=== PATIENT | male | born 1960 | race Caucasian/White ===

== ENCOUNTER 2020-07-08 10:21 | Emergency (ER) | payer MEDICAID, SELFPAY ==
[~2020-07-08] VITALS: Ht 165.1 cm; Wt 74.4 kg
[2020-07-08 10:23] VITALS: Ht 165.1 cm; Wt 74.4 kg
[2020-07-08 12:11] VITALS: BP 165/98
== END 2020-07-08 12:11 | disposition home or self-care (01) ==
LOC: ED 10:21
DX: U07.1 COVID-19 (principal)
CPT/HCPCS: U0003